=== PATIENT | male | born 1985 | race Caucasian/White ===

== ENCOUNTER 2019-12-22 14:28 | Emergency (ER) | payer MEDICAID, OTHER ==
[~2019-12-22] VITALS: Ht 177.8 cm; Wt 83.9 kg
[2019-12-22 14:29] VITALS: BP 128/90
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
--- NOTE | 2019-12-22 14:50 | NUR ---
Dr Mccabe at bedside examining pt
--- NOTE | 2019-12-22 14:52 | NUR ---
3 KATHRYN REMOVED FROM PTS LEFT CHEST BY DR CHARLES.
[2019-12-22 15:22] VITALS: BP 128/90
--- NOTE | 2019-12-22 15:23 | NUR ---
Patient discharged with v/s stable. Written and verbal after care instructions given and explained. Patient verbalized understanding. Ambulatory with steady gait. All questions addressed prior to discharge. Advised to follow up with PMD.
== END 2019-12-22 15:23 | disposition home or self-care (01) ==
LOC: MED 14:28
DX: S21.91XD Laceration without foreign body of unspecified part of thorax, subsequent encounter (principal); F12.90 Cannabis use, unspecified, uncomplicated; Z98.890 Other specified postprocedural states; Z59.0 Homelessness; X58.XXXD Exposure to other specified factors, subsequent encounter
CPT/HCPCS: 99281